=== PATIENT | female | born 2005 | race Hispanic/Latino ===

== ENCOUNTER 2024-11-25 11:17 | Observation (INO) | payer OTHER ==
[2024-11-25] MEDS ORDERED: hydrALAZINE 20 MG/ML VIAL SLOW IVP PRN (12:46)
[2024-11-25 13:16] LABS: #Basophils 0.07 10x3/uL (0.0-0.2); #Eosinophils 0.19 10x3/uL (0.0-0.5); #Monocytes 1.04 10x3/uL (0.0-1.1); #Neutrophils 10.19 10x3/uL (1.5-8.4); %Basophils 0.5 % (0.0-2.0); %Eosinophils 1.3 % (0.0-6.0); %Lymphocytes 20.0 % (18.0-47.0); %Monocytes 7.1 % (0.0-10.0); %Neutrophils 69.5 % (40.0-75.0); Hematocrit 31.3 % (34.9-44.5); Hemoglobin 10.5 g/dL (12.0-15.5); Mean Corpuscular Hemoglobin 31.0 pg (27.0-33.0); Mean Corpuscular Volume 92.3 fL (81.6-98.3); Platelet Count 291 10x3/uL (150-450); Red Blood Cell (RBC) Count 3.39 10x6/uL (3.90-5.03); White Blood Cell (WBC) Count 14.65 10x3/uL (3.5-10.5)
[2024-11-25 13:48] LABS: Protein, Urine Random Quant Less than 10 mg/dL (1-14)
[2024-11-25 13:48] LABS: ALT (SGPT) 11 U/L (Less than 34); AST (SGOT) 16 U/L (11-34); Albumin 2.6 g/dL (3.1-4.5); Alkaline Phosphatase 114 U/L (40-110); Anion Gap 12 mmol/L (10-20); BUN (Urea Nitrogen) 7 mg/dL (7.0-18.7); Bilirubin, Total 0.2 mg/dL (0.3-1.2); Calc. Creatinine Clearance 0 mL/min (70-130); Calcium 8.7 mg/dL (7.8-10.44); Carbon Dioxide 20 mmol/L (22-29); Chloride 108 mmol/L (98-107); Globulin 4.0 g/dL (2.4-3.5); Glucose 75 mg/dL (70-105); Potassium 3.9 mmol/L (3.5-5.1); Sodium 136 mmol/L (136-145)
[2024-11-25 16:57] LABS: HIV (1/2) Antibody/Antigen Non-Reactive (NonReactive); HIV 1/2 INDEX 0.13 S/CO (<1.00)
[2024-11-25 18:23] LABS: Syphilis Antibody Index 22.27 S/CO (<1.00 Non-Reactive)
[2024-11-25 19:24] LABS: Syphilis Titer 1:4 Titer (Nonreactive)
[2024-11-25 20:05] LABS: Uric Acid 4.4 mg/dL (2.5-6.2)
== END 2024-11-25 14:16 | disposition home or self-care (01) ==
LOC: INTOOBSV 11:17 → CSHLD 11:17
PROVIDERS: ADMIT Student in an Organized Health Care Education/Training Program; ATTEND Student in an Organized Health Care Education/Training Program
DX: O13.3 Gestational [pregnancy-induced] hypertension without significant proteinuria, third trimester (principal); O98.813 Other maternal infectious and parasitic diseases complicating pregnancy, third trimester; B95.1 Streptococcus, group B, as the cause of diseases classified elsewhere; O98.113 Syphilis complicating pregnancy, third trimester; Z3A.34 34 weeks gestation of pregnancy
CPT/HCPCS: 76819; 80053; 82570; 83615; 84156; 84550; 85025; 86593; 86780; 87389; 96360; 99285

== ENCOUNTER 2024-11-25 14:29 | Day surgery (SDC) | payer OTHER ==
[2024-11-25] MEDS ORDERED: hydrALAZINE 20 MG/ML VIAL SLOW IVP PRN (14:51)
[2024-11-25] MEDS ORDERED: Acetaminophen 500 MG TAB PO SCH (16:45)
== END 2024-11-25 18:32 | disposition home health service (06) ==
LOC: CSHLD/OP 14:29
PROVIDERS: ATTEND Student in an Organized Health Care Education/Training Program
DX: O13.3 Gestational [pregnancy-induced] hypertension without significant proteinuria, third trimester (principal); O98.813 Other maternal infectious and parasitic diseases complicating pregnancy, third trimester; B95.1 Streptococcus, group B, as the cause of diseases classified elsewhere; O98.113 Syphilis complicating pregnancy, third trimester; Z3A.34 34 weeks gestation of pregnancy; Z79.899 Other long term (current) drug therapy

== ENCOUNTER 2024-12-18 03:43 | Inpatient (IN) | payer OTHER ==
[2024-12-19 04:20] VITALS: BMI 47.8
[2024-12-19] MEDS ORDERED: Methylergonovine 0.2 MG/ML VIAL IM PRN (04:46)
[2024-12-19] MEDS ORDERED: Acetaminophen 500 MG TAB PO PRN (04:46)
[2024-12-19] MEDS ORDERED: Carboprost 250 MCG/ML AMP IM PRN (04:46)
[2024-12-19] MEDS ORDERED: hydrALAZINE 20 MG/ML VIAL SLOW IVP PRN (04:46)
[2024-12-19] MEDS ORDERED: Tranexamic Acid 1,000 MG/10 ML VIAL IVP PRN (04:46)
[2024-12-19] MEDS ORDERED: Diphenoxylate HCl/Atropine Tablet PO PRN ×2 (04:46)
[2024-12-19] MEDS ORDERED: Ibuprofen 800 MG TAB PO PRN (04:48)
[2024-12-19] MEDS ORDERED: Lidocaine 1% (PF) 30 ML VIAL SC PRN (04:48)
[2024-12-19] MEDS ORDERED: Oxytocin 30 units/NS 500 ML 500 ML IV SCH (05:00)
[2024-12-19 05:31] LABS: Hematocrit 33.8 % (34.9-44.5); Hemoglobin 11.2 g/dL (12.0-15.5); Mean Corpuscular Hemoglobin 29.7 pg (27.0-33.0); Mean Corpuscular Volume 89.7 fL (81.6-98.3); Platelet Count 253 10x3/uL (150-450); Red Blood Cell (RBC) Count 3.77 10x6/uL (3.90-5.03); White Blood Cell (WBC) Count 13.23 10x3/uL (3.5-10.5)
[2024-12-19 06:06] LABS: Hep B Surf Ag - L&D Non-Reactive S/CO (NonReactive)
[2024-12-19 08:46] LABS: Syphilis Antibody Index 22.90 S/CO (<1.00 Non-Reactive)
[2024-12-19 08:55] LABS: Syphilis Titer 1:4 Titer (Nonreactive)
[2024-12-20] MEDS: Ondansetron PF 4 MG/2 ML Vial IVP PRN (08:39)
[2024-12-20] MEDS: Oxytocin 30 units/NS 500 ML 500 ML IV SCH (12:15)
[2024-12-20] MEDS: fentaNYL/Ropivacaine Epidural 100 ML ONE (14:11)
[2024-12-20] MEDS ORDERED: Acetaminophen 325 MG TAB PO PRN (14:33)
[2024-12-20] MEDS ORDERED: diphenhydrAMINE 50 MG/ML VIAL IVP PRN (14:33)
[2024-12-20] MEDS: Penicillin G Potassium 5 MILL.UNITS in Sodium Chloride 0.9% 100 ML IVPB SCH (18:04)
[2024-12-20] MEDS: Penicillin G 2.5 MILL.units 2.5 MILL.UNITS in Premix 1 BAG IVPB SCH (22:14)
[2024-12-21] MEDS: fentaNYL 2 mcg/Ropivacaine 0.2% Epidural 100 ML CADD EPIDURAL SCH (02:37)
[2024-12-21] MEDS: Ondansetron PF 4 MG/2 ML Vial IVP PRN (08:01)
[2024-12-21] MEDS: Famotidine/PF 20 mg/2ml Vial ONE (08:04)
[2024-12-21] MEDS: Azithromycin 500 MG VIAL ONE (08:04)
[2024-12-21] MEDS ORDERED: Bicitra 30 ML UDCUP PO PRN (08:16)
[2024-12-21] MEDS ORDERED: Famotidine/PF 20 mg/2ml Vial SLOW IVP PRN (08:16)
[2024-12-21] MEDS ORDERED: Azithromycin 500 MG in Sodium Chloride 0.9% 250 ML 250 ML IVPB SCH (08:30)
[2024-12-21] MEDS: CEFAZOLIN 3 GM, Admixture Fee 1 EACH in Sodium Chloride 0.9% 100 ML IVPB SCH (09:28)
[2024-12-21] MEDS ORDERED: Meperidine HCl/PF 25 MG (1 mL) VIAL SLOW IVP PRN (09:33)
[2024-12-21] MEDS ORDERED: diphenhydrAMINE 50 MG/ML VIAL IVP PRN (09:33)
[2024-12-21] MEDS ORDERED: Ondansetron PF 4 MG/2 ML Vial IVP PRN ×3 (09:33→12:17)
[2024-12-21] MEDS: Ketorolac Tromethamine 30 MG (1 mL) VIAL IVP SCH (10:50)
[2024-12-21] MEDS ORDERED: Lanolin Ointment 7 GM TUBE TOP PRN (12:17)
[2024-12-21] MEDS ORDERED: hydrALAZINE 20 MG/ML VIAL SLOW IVP PRN (12:17)
[2024-12-21] MEDS ORDERED: diphenhydrAMINE 25 MG CAP PO PRN (12:17)
[2024-12-21] MEDS ORDERED: Oxytocin 30 units/NS 500 ML 500 ML IV SCH (12:17)
[2024-12-21] MEDS: CEFAZOLIN 2 GM VIAL ONE (12:23)
[2024-12-21] MEDS: Ondansetron PF 4 MG/2 ML Vial ONE (12:23)
[2024-12-21] MEDS: Oxytocin 10 UNITS/ML VIAL ONE (12:23)
[2024-12-21] MEDS: PHENYLEPHRINE-NS 100 MCG/ML 10 ML SYRINGE ONE (12:23)
[2024-12-21] MEDS: Dexamethasone 10 MG/ML VIAL ONE (12:23)
[2024-12-21] MEDS ORDERED: Diphenoxylate HCl/Atropine Tablet PO PRN ×2 (14:33)
[2024-12-21] MEDS: Penicillin G Potassium 5 MILL.UNITS VIAL ONE (16:06)
[2024-12-21] MEDS: Boostrix 0.5 ML (Tdap) VIAL (>/=7 yrs of age) IM ONE (16:06)
[2024-12-21] MEDS: Ketorolac Tromethamine 30 MG (1 mL) VIAL IVP PRN (19:31)
[2024-12-21] MEDS: Enoxaparin 40 MG (0.4 mL) SYRINGE SC SCH (21:07)
[2024-12-21] MEDS ORDERED: HYDROcodone/Acetaminophen 5/325 mg Tablet PO PRN (21:45)
[2024-12-21] MEDS ORDERED: Enoxaparin 40 MG (0.4 mL) SYRINGE SC SCH (23:00)
[2024-12-22 04:28] LABS: Hematocrit 28.5 % (34.9-44.5); Hemoglobin 9.2 g/dL (12.0-15.5); Mean Corpuscular Hemoglobin 29.4 pg (27.0-33.0); Mean Corpuscular Volume 91.1 fL (81.6-98.3); Platelet Count 187 10x3/uL (150-450); Red Blood Cell (RBC) Count 3.13 10x6/uL (3.90-5.03); White Blood Cell (WBC) Count 13.24 10x3/uL (3.5-10.5)
[2024-12-22] MEDS: HYDROcodone/Acetaminophen 5/325 mg Tablet PO PRN (05:23)
[2024-12-22] MEDS: Ibuprofen 800 MG TAB PO SCH (13:19)
[2024-12-22] MEDS: Simethicone Chewable 80 MG TAB PO PRN (21:53)
[2024-12-23 13:13] VITALS: BP 138/66; TEMP 98
[2024-12-23] MEDS: Enoxaparin 40 MG (0.4 mL) SYRINGE SC SCH (15:36)
== END 2024-12-23 16:30 | disposition home or self-care (01) | DRG 787 ==
LOC: UNDOADMIN 03:43 → CSHLD 03:43 → CSHPP 12-21 12:35
PROVIDERS: ADMIT Obstetrics & Gynecology; ATTEND Obstetrics & Gynecology
PROC: 0U7C7ZZ Dilation of Cervix, Via Natural or Artificial Opening (ICD-10-PCS; principal; 2024-12-20)
PROC: 10H07YZ Insertion of Other Device into Products of Conception, Via Natural or Artificial Opening (ICD-10-PCS; 2024-12-20)
PROC: 10D00Z1 Extraction of Products of Conception, Low, Open Approach (ICD-10-PCS; 2024-12-21)
DX: O13.4 Gestational [pregnancy-induced] hypertension without significant proteinuria, complicating childbirth (principal); O98.12 Syphilis complicating childbirth; O61.0 Failed medical induction of labor; O99.214 Obesity complicating childbirth; E66.813 Obesity, class 3; O76 Abnormality in fetal heart rate and rhythm complicating labor and delivery; Z79.899 Other long term (current) drug therapy; Z3A.37 37 weeks gestation of pregnancy; Z37.0 Single live birth
CPT/HCPCS: 36415; 51702; 59200; 85027; 86593; 86780; 86850; 86900; 86901; 87340; J0456; J0595; J1100; J1308; J1650; J1885; J2250; J2274; J2405; J2540; J2590; J3010; J7120